=== PATIENT | female | born 1950 | race Caucasian/White ===

== ENCOUNTER 2016-07-27 07:42 | Day surgery (SDC) | payer BC ==
[~2016-07-27] VITALS: Ht 165.1 cm; Wt 73.9 kg
[~2016-07-27 07:42] MED LIST: ATELVIA35 MG PO; COZAAR100 MG PO; LIPITOR40 M1 PO; METFORMIN500 M2 PO; PRILOSEC20 MG PO
[2016-07-27 09:43] VITALS: BP 139/74
== END 2016-07-27 09:59 | disposition home or self-care (01) | DRG 951 ==
LOC: ENDO 07:42 → ORM 12:00 → ENDO 12:00 → ORM 16:45
PROVIDERS: ATTEND Internal Medicine Gastroenterology
PROC: 0DBN8ZX Excision of Sigmoid Colon, Via Natural or Artificial Opening Endoscopic, Diagnostic (ICD-10-PCS; principal; 2016-07-27)
DX: Z12.11 Encounter for screening for malignant neoplasm of colon (principal); I10 Essential (primary) hypertension; K57.30 Diverticulosis of large intestine without perforation or abscess without bleeding; D12.5 Benign neoplasm of sigmoid colon; K64.4 Residual hemorrhoidal skin tags; R14.0 Abdominal distension (gaseous); K64.8 Other hemorrhoids; K21.9 Gastro-esophageal reflux disease without esophagitis; E11.9 Type 2 diabetes mellitus without complications; E78.00 Pure hypercholesterolemia, unspecified; Z80.0 Family history of malignant neoplasm of digestive organs